=== PATIENT | male | born 1990 | race Two or more races ===

== ENCOUNTER 2016-12-07 14:06 | Emergency (ER) | payer SELFPAY ==
[~2016-12-07] VITALS: Ht 170.2 cm; Wt 80.0 kg
[2016-12-07 14:12] VITALS: Ht 170.2 cm; Wt 80.0 kg
== END 2016-12-07 21:32 | disposition left against medical advice (07) ==
LOC: E/R 14:06
DX: Z53.21 Procedure and treatment not carried out due to patient leaving prior to being seen by health care provider (principal)